=== PATIENT | male | born 1995 | race Caucasian/White ===

== ENCOUNTER 2017-04-01 21:23 | Emergency (ER) | payer OTHER ==
[2017-04-01 21:57] VITALS: BP 136/71; PULSE 91; RESP 18; TEMP 98.2
--- NOTE | 2017-04-01 22:25 | ED ---
Extremity Problem HPI - General Chief complaint: Extremity Problem,Nontraumatic Stated complaint: Bilat knee pain Time Seen by Provider: 04/01/17 22:17 Source: patient, RN notes reviewed Mode of arrival: ambulatory Limitations: no limitations - History of Present Illness Initial comments: 21-year-old male presents emergency Department chief complaint of bilateral knee pain. This is ongoing knee pain for 2 years. Patient states he was seen at a clinic told he had some inflammation given anti-inflammatories with no relief. He states it more does upset her stomach. Patient states she stands all day long states his had increased pain last few days no trauma. Denies any leg swelling, calf pain. He states he is gets pain on his patella. Patient states he has not seen his primary care physician for this or not. - Related Data Previous Rx's Medication Instructions Recorded methylPREDNISolone [Medrol Dose 4 mg PO DIRECTED #1 pack 04/01/17 Pack] Allergies Allergy/AdvReac Type Severity Reaction Status Date / Time No Known Allergies Allergy Verified 04/01/17 21:57 Review of Systems ROS Statement: Those systems with pertinent positive or pertinent negative responses have been documented in the HPI. ROS Other: All systems not noted in ROS Statement are negative. Past Medical History Additional Past Medical History / Comment(s): hashimotos History of Any Multi-Drug Resistant Organisms: None Reported Past Surgical History: Appendectomy, Tonsillectomy Past Psychological History: No Psychological Hx Reported Smoking Status: Current every day smoker Past Alcohol Use History: None Reported Past Drug Use History: None Reported General Exam Limitations: no limitations General appearance: alert, in no apparent distress Respiratory exam: Present: normal lung sounds bilaterally. Absent: respiratory distress, wheezes, rales, rhonchi, stridor Cardiovascular Exam: Present: regular rate, normal rhythm, normal heart sounds. Absent: systolic murmur, diastolic murmur, rubs, gallop, clicks Extremities exam: Present: other (Bilateral knees full range of motion neurovascular intact no laxity negative valgus varus negative anterior posterior drawer test pedal pulses equal bilaterally) Course Vital Signs 04/01/17 21:55 Temperature 98.2 F Pulse Rate 91 Respiratory 18 Rate Blood Pressure 136/71 O2 Sat by Pulse 96 Oximetry Medical Decision Making - Medical Decision Making 21-year-old male has chronic knee problems. Patient notes erratic injury does not require x-rays at this time. Patient referred to orthopedics. We discussed possible tendinitis versus Teleform oral syndrome. Patient states that anti-inflammatories her upset stomach. 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 Prescriptions: methylPREDNISolone [Medrol Dose Pack] 4 mg PO DIRECTED #1 pack Referrals: Kane Mercado Jr, DO [Primary Care Provider] - 1-2 days Narinder Gonsales MD [STAFF PHYSICIAN] - 1-2 days Time of Disposition: 22:25
== END 2017-04-01 22:39 | disposition home or self-care (01) ==
LOC: EC 21:23
DX: M25.561 Pain in right knee (principal); M25.562 Pain in left knee; F17.200 Nicotine dependence, unspecified, uncomplicated
CPT/HCPCS: 99283

== ENCOUNTER 2017-09-10 17:19 | Emergency (ER) | payer OTHER ==
[2017-09-10 17:27] VITALS: BP 147/76; PULSE 114; RESP 18; TEMP 97.7
[2017-09-10] MEDS ORDERED: ERYTHROMYCIN 5 MG/GM OPHTH OINT 3.5 GM TUBE RIGHT EYE STA (18:01)
[2017-09-10] MEDS ORDERED: ERYTHROMYCIN 5 MG/GM OPHTH OINT 3.5 GM TUBE LEFT EYE STA (18:01)
--- NOTE | 2017-09-10 18:12 | ED ---
Eye Problem HPI - General Chief complaint: Eye Problems Stated complaint: Eye Redness & Dry Time Seen by Provider: 09/10/17 17:53 Source: patient, RN notes reviewed Mode of arrival: ambulatory Limitations: no limitations - History of Present Illness Initial comments: This is a 22-year-old male who presents to the emergency department with chief complaint of eye redness and discharge since last . Patient states that his eyes have been red and have greenish/yellowish discharge that is more prominent in the morning upon waking. Patient states that his eyes were initially itchy for a few days then progressed to burning. He states itchiness and burning have gone away and that his eyes now just feel dry and "gunky." Patient denies any changes in vision or blurred vision. Patient denies any known injury or trauma. He denies foreign body feeling in bilateral eyes. Denies fever, chills, congestion, cough, sore throat, ear pain, chest pain, shortness of breath, abdominal pain, nausea or vomiting, constipation or diarrhea, dysuria or hematuria, numbness or tingling, headache or vision changes. - Related Data Previous Rx's Medication Instructions Recorded methylPREDNISolone [Medrol Dose 4 mg PO DIRECTED #1 pack 04/01/17 Pack] Allergies Allergy/AdvReac Type Severity Reaction Status Date / Time No Known Allergies Allergy Verified 09/10/17 17:27 Review of Systems ROS Statement: Those systems with pertinent positive or pertinent negative responses have been documented in the HPI. ROS Other: All systems not noted in ROS Statement are negative. Past Medical History Additional Past Medical History / Comment(s): hashimotos History of Any Multi-Drug Resistant Organisms: None Reported Past Surgical History: Appendectomy, Tonsillectomy Past Psychological History: No Psychological Hx Reported Smoking Status: Current every day smoker Past Alcohol Use History: None Reported Past Drug Use History: None Reported General Exam - General Exam Comments Initial Comments: General: Awake and alert, well-developed; in no apparent distress. HEENT: Head atraumatic, normocephalic. Pupils are equal, round and reactive to light. Extraocular movements intact. Bilateral conjunctiva injected. There is yellow-colored discharge noted at medial canthus of bilateral eyelids. Fluorescein staining was performed. There is no evidence of abrasion, ulcers or other abnormalities. Neck: Supple. Normal ROM. No adenopathy. Cardiovascular: Regular rate and rhythm. No murmurs, rubs or gallops. Chest symmetrical. Respiratory: Lungs clear to auscultation bilaterally. No wheezes, rales or rhonchi. Normal respiratory effort with no use of accessory muscles. Skin: [place], warm and dry without rashes or lesions. Neurological: Alert and oriented x3. CN II-XII grossly intact. Speech is fluent and answers are appropriate. No focal neuro deficits. Psychiatric: Normal mood and affect. No overt signs of depression or anxiety noted. Limitations: no limitations Course Vital Signs 09/10/17 17:25 Temperature 97.7 F Pulse Rate 114 H Respiratory 18 Rate Blood Pressure 147/76 O2 Sat by Pulse 98 Oximetry Medical Decision Making - Medical Decision Making This is a 22-year-old male who presents with complaint of bilateral eye redness and discharge. Fluorescein staining was performed and there was no evidence of abrasion, ulcers or other abnormalities. Patient tolerated this well and there were no complications. Bilateral conjunctiva are injected and discharge is noted at eyelids. Patient will receive erythromycin ointment and be discharged home. He is to follow-up with primary care provider in 1-2 days. Patient provided with ophthalmology referral if there is no improvement after antibiotics or there are any changes in vision. Patient is in agreement and voices understanding. All questions were answered. Disposition Clinical Impression: Bacterial conjunctivitis Disposition: HOME SELF-CARE Condition: Good Instructions: Conjunctivitis (ED), Erythromycin (Into the eye) Additional Instructions: Please apply erythromycin ointment to both affected eyes 4 times per day for 5 days. Please follow up with ophthalmology. Contact information is provided. Please follow up with primary care provider within 1-2 days. Return to emergency department if symptoms should worsen or any concerns arise. Referrals: Kane Mercado Jr, DO [Primary Care Provider] - 1-2 days Juan Daniel Peace MD [STAFF PHYSICIAN] - 1-2 days Time of Disposition: 18:12
== END 2017-09-10 18:39 | disposition home or self-care (01) ==
LOC: EC 17:19
DX: H10.89 Other conjunctivitis (principal); F17.200 Nicotine dependence, unspecified, uncomplicated
CPT/HCPCS: 99283

== ENCOUNTER 2017-11-14 07:07 | Emergency (ER) | payer OTHER ==
[2017-11-14 07:14] VITALS: RESP 16
[2017-11-14] MEDS ORDERED: ONDANSETRON ODT 4 MG TAB PO STA (07:30)
--- NOTE | 2017-11-14 07:32 | ED ---
General Adult HPI - General Chief complaint: Nausea/Vomiting/Diarrhea Stated complaint: nausea,vomiting Time Seen by Provider: 11/14/17 07:25 Source: patient, RN notes reviewed Mode of arrival: ambulatory Limitations: no limitations - History of Present Illness Initial comments: Patient is a pleasant 22-year-old male presenting to the emergency Department with nausea and vomiting. Onset was at 3 AM. Patient has had 2 episodes of vomiting. Patient still feels nauseated. No fever. No abdominal pain. No diarrhea. No history of chronic vomiting. - Related Data Previous Rx's Medication Instructions Recorded methylPREDNISolone [Medrol Dose 4 mg PO DIRECTED #1 pack 04/01/17 Pack] Erythromycin Ophth Oint [Romycin 1 applic BOTH EYES QID #3.5 gm 09/10/17 Ophth Oint] Ondansetron Odt [Zofran Odt] 4 mg PO Q8HR PRN #4 tab 11/14/17 Allergies Allergy/AdvReac Type Severity Reaction Status Date / Time No Known Allergies Allergy Verified 11/14/17 07:14 Review of Systems ROS Statement: Those systems with pertinent positive or pertinent negative responses have been documented in the HPI. ROS Other: All systems not noted in ROS Statement are negative. Constitutional: Denies: fever, chills Eyes: Denies: eye pain ENT: Denies: ear pain, throat pain Respiratory: Denies: cough, dyspnea Cardiovascular: Denies: chest pain Endocrine: Denies: fatigue Gastrointestinal: Reports: nausea, vomiting. Denies: abdominal pain Genitourinary: Denies: dysuria Musculoskeletal: Denies: back pain Skin: Denies: rash Neurological: Denies: weakness Past Medical History Additional Past Medical History / Comment(s): hashimotos History of Any Multi-Drug Resistant Organisms: None Reported Past Surgical History: Appendectomy, Tonsillectomy Past Psychological History: No Psychological Hx Reported Smoking Status: Former smoker Past Alcohol Use History: None Reported Past Drug Use History: None Reported General Exam Limitations: no limitations General appearance: alert, in no apparent distress Head exam: Present: atraumatic Eye exam: Present: normal appearance, PERRL ENT exam: Present: normal oropharynx Neck exam: Present: normal inspection Respiratory exam: Present: normal lung sounds bilaterally Cardiovascular Exam: Present: regular rate, normal rhythm Expanded Peripheral pulses: 2+: Radial (R), Radial (L), Posterior Tibialis (R), Posterior Tibialis (L) GI/Abdominal exam: Present: soft, normal bowel sounds. Absent: distended, tenderness, guarding, rebound, rigid, pulsatile mass Extremities exam: Present: normal inspection. Absent: pedal edema, calf tenderness Neurological exam: Present: alert Psychiatric exam: Present: normal affect, normal mood Skin exam: Present: normal color Course Vital Signs 11/14/17 11/14/17 07:13 07:55 Temperature 97.5 F L Pulse Rate 115 H 98 Respiratory 16 Rate Blood Pressure 133/81 O2 Sat by Pulse 97 Oximetry - Reevaluation(s) Reevaluation #1: 11/14/17 07:30 Patient wishes to avoid a needle and just wants Zofran ODT at this time. Medical Decision Making - Medical Decision Making Patient reevaluated and states nausea has improved. Patient is comfortable with discharge Disposition Clinical Impression: Nausea and vomiting Disposition: HOME SELF-CARE Condition: Stable Instructions: Acute Nausea and Vomiting (ED) Additional Instructions: Please follow-up to primary care physician in the next day or 2 for recheck. Return for not tolerating fluids, pain, fevers, worsening or changing symptoms or other concerns. Prescriptions: Ondansetron Odt [Zofran Odt] 4 mg PO Q8HR PRN #4 tab PRN Reason: Nausea Referrals: Kane Mercado Jr, DO [Primary Care Provider] - 1-2 days Time of Disposition: 08:05
[2017-11-14 08:15] VITALS: BP 125/78; PULSE 91; TEMP 98
== END 2017-11-14 08:15 | disposition home or self-care (01) ==
LOC: EC 07:07
DX: R11.2 Nausea with vomiting, unspecified (principal); Z87.891 Personal history of nicotine dependence; Z90.49 Acquired absence of other specified parts of digestive tract
CPT/HCPCS: 99283

== ENCOUNTER 2018-01-07 21:21 | Emergency (ER) | payer BC, OTHER ==
[2018-01-07 21:26] VITALS: BP 130/80; PULSE 82; RESP 18; TEMP 98.3
--- NOTE | 2018-01-07 22:01 | ED ---
Extremity Problem HPI - General Chief complaint: Extremity Problem,Nontraumatic Stated complaint: left arm pain Time Seen by Provider: 01/07/18 21:30 Source: patient Mode of arrival: ambulatory Limitations: no limitations - History of Present Illness Initial comments: This is a 22-year-old male who presents to the emergency department with chief complaint of left upper arm pain. Patient states that the pain began last evening. He describes the pain as an ache that radiates down his arm. The pain is intermittent. He states that he occasionally experiences some numbness and tingling in his left wrist. Patient denies any recent injuries or trauma. 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 He denies any recent neck injury or pain. He states that he has normal range of motion and that there is no pain when he touches his arm. Denies chest pain or shortness of breath. Denies fever or chills, abdominal pain, nausea or vomiting , diarrhea or constipation. - Related Data Previous Rx's Medication Instructions Recorded methylPREDNISolone [Medrol Dose 4 mg PO DIRECTED #1 pack 04/01/17 Pack] Erythromycin Ophth Oint [Romycin 1 applic BOTH EYES QID #3.5 gm 09/10/17 Ophth Oint] Ondansetron Odt [Zofran Odt] 4 mg PO Q8HR PRN #4 tab 11/14/17 methylPREDNISolone Dose Pack 4 mg PO DIRECTED #21 package 01/07/18 [Medrol Dose Pack] Allergies Allergy/AdvReac Type Severity Reaction Status Date / Time No Known Allergies Allergy Verified 01/07/18 21:23 Review of Systems ROS Statement: Those systems with pertinent positive or pertinent negative responses have been documented in the HPI. ROS Other: All systems not noted in ROS Statement are negative. Past Medical History Additional Past Medical History / Comment(s): hashimotos History of Any Multi-Drug Resistant Organisms: None Reported Past Surgical History: Appendectomy, Tonsillectomy Past Psychological History: No Psychological Hx Reported Smoking Status: Former smoker Past Alcohol Use History: Occasional Past Drug Use History: None Reported General Exam - General Exam Comments Initial Comments: General: Awake and alert, well-developed; in no apparent distress. HEENT: Head atraumatic, normocephalic. Pupils are equal, round and reactive to light. Extraocular movements intact. Oropharynx moist without erythema or exudate. Neck: Supple. Normal ROM. No tenderness. Cardiovascular: Regular rate and rhythm. No murmurs, rubs or gallops. Chest symmetrical. Respiratory: Lungs clear to auscultation bilaterally. No wheezes, rales or rhonchi. Normal respiratory effort with no use of accessory muscles. Musculoskeletal: Normal ROM, strength 5/5, no tenderness entire left upper extremity. Sensation is intact. Radial pulses are 2+ equal and palpable bilaterally. Ambulating normally. Skin: [place], warm and dry without rashes or lesions. Neurological: Alert and oriented x3. CN II-XII grossly intact. Speech is fluent and answers are appropriate. No focal neuro deficits. Psychiatric: Normal mood and affect. No overt signs of depression or anxiety noted. Limitations: no limitations Course Vital Signs 01/07/18 21:23 Temperature 98.3 F Pulse Rate 82 Respiratory 18 Rate Blood Pressure 130/80 O2 Sat by Pulse 97 Oximetry Medical Decision Making - Medical Decision Making This is a 22-year-old male who presents to the emergency department with chief complaint of left upper arm pain with radiation down his arm that started yesterday. Patient denies any chest pain or shortness of breath. The pain is intermittent and he describes it as achy with occasional numbness and tingling of his left wrist. Denies any injuries or trauma. Patient has normal range of motion and no tenderness on palpation of entire left upper extremity. Patient likely suffering from a cervical radiculopathy. He will be given a prescription for Medrol Dosepak. Patient's vital signs are stable and he is in no acute distress. He will be discharged home. Patient is in agreement with plan and voices understanding. All questions were answered. Disposition Clinical Impression: Cervical radiculopathy Disposition: HOME SELF-CARE Condition: Good Instructions: Cervical Radiculopathy (ED) Additional Instructions: Please take medications as prescribed. Please follow up with primary care provider within 1-2 days. Return to emergency department if symptoms should worsen or any concerns arise. Prescriptions: methylPREDNISolone Dose Pack [Medrol Dose Pack] 4 mg PO DIRECTED #21 package Referrals: Kane Mercado Jr, DO [Primary Care Provider] - 1-2 days Time of Disposition: 22:01
== END 2018-01-07 22:04 | disposition home or self-care (01) ==
LOC: EC 21:21
DX: M54.12 Radiculopathy, cervical region (principal); Z87.891 Personal history of nicotine dependence
CPT/HCPCS: 99283

== ENCOUNTER → 2018-02-14 | Outpatient (CLI) | payer BC, OTHER ==
--- NOTE | 2018-02-14 09:44 | US ---
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 GLAND SIZE: Right Lobe: 5.4 x 1.9 x 1.8 cm Overall Parenchyma: heterogenous Left Lobe: 5.1 x 2.0 x 1.3 cm Overall Parenchyma: heterogeneous Isthmus Thickness: 0.6 cm NODULES RIGHT: # of nodules measured on right: 0 LEFT: # of nodules measured on left: 0 ISTHMUS: # of nodules measured in the isthmus: 0 No discrete nodules seen. Bilateral neck scanned, no evidence of lymphadenopathy. IMPRESSION: Continued thyroidomegaly and heterogeneity without distinct nodules seen.
== END ==
LOC: RADUSMAIN 08:53
PROVIDERS: ATTEND Internal Medicine
DX: E01.0 Iodine-deficiency related diffuse (endemic) goiter (principal)
CPT/HCPCS: 76536

== ENCOUNTER 2019-10-21 08:02 | Day surgery (SDC) | payer BC, OTHER ==
[2019-10-14 14:23] VITALS: BMI 34.2
[~2019-10-21 08:02] MED LIST: DEXAMETHASONE SOD PHOSPHATE 10 MG/ML 1 ML VIAL IV ONE; HEPARIN SODIUM,PORCINE 5,000 UNIT/ML 1 ML VIAL SQ ONE; LACTATED RINGERS 1,000 ML IV SCH; LIDOCAINE 1% 20 ML VIAL (10MG/ML) FOR IV START INTRADERMA PRN; MIDAZOLAM 2 MG/2 ML VIAL IV PRN; ONDANSETRON 4 MG/2 ML VIAL IVP ONE; SCOPOLAMINE 1.5MG/72HR PATCH TRANSDERM ONE
--- NOTE | 2019-10-21 10:20 | P.ANPRN ---
Procedure Note - Anesthesia - Nerve Block Performed Left Transversus Abdominis Single Time Out Performed: Yes Date of Procedure: 10/21/19 Procedure Start Time: 09:58 Procedure Stop Time: 10:01 Location of Patient: PreOp Indication: Acute Post-Operative Pain, Analgesia, Requested by Surgeon Sedation Type: Sedate with meaningful contact maintained Preparation: Sterile Prep Position: Supine Catheter: None Needle Types: Pajunk Needle Gauge: 21 Ultrasound used to visualize needle placement: Yes Ultrasound used to observe medication spread: Yes Injectate: Other (see comment) (0.25% ropivaciane 30cc) Blood Aspirated: No Pain Paresthesia on Injection Noted: No Resistance on Injection: Normal Image Stored and Saved: Yes Events: Uneventful and Well Tolerated
--- NOTE | 2019-10-21 10:28 | P.GSHP ---
History of Present Illness H&P Date: 10/21/19 Chief Complaint: Left inguinal hernia This a 24-year-old male who presents today for open repair of left we will hernia. Patient has a very large left inguinal hernia. He's dull pain and mass in the area. Past Medical History Additional Past Medical History / Comment(s): left inguinal hernia, hashimotos, no current medication History of Any Multi-Drug Resistant Organisms: None Reported Past Surgical History: Appendectomy, Tonsillectomy Past Anesthesia/Blood Transfusion Reactions: No Reported Reaction Past Psychological History: No Psychological Hx Reported Smoking Status: Former smoker Past Alcohol Use History: Occasional Additional Past Alcohol Use History / Comment(s): quit smoking 2016, smoked about 1 pk a week, currently vapes Past Drug Use History: None Reported - Past Family History Mother Family Medical History: No Reported History Medications and Allergies Home Medications Medication Instructions Recorded Confirmed Type No Known Home Medications 10/14/19 10/21/19 History Allergies Allergy/AdvReac Type Severity Reaction Status Date / Time No Known Allergies Allergy Verified 10/21/19 09:27 Surgical - Exam Vital Signs Temp Pulse Resp BP Pulse Ox 98.8 F 60 17 115/76 97 10/21/19 09:51 10/21/19 09:51 10/21/19 09:51 10/21/19 09:51 10/21/19 09:51 - General well developed, well nourished, no distress - Eyes PERRL - ENT normal pinna - Neck no masses - Respiratory normal expansion - Cardiovascular Rhythm: regular - Abdomen Abdomen: soft, non tender Hernia: inguinal (Incarcerated left inguinal hernia) Assessment and Plan Assessment: Left internal hernia. We'll perform open repair.
[2019-10-21] MEDS ORDERED: PROPOFOL 10 MG/ML 20 ML VIAL IV ONE (10:40)
[2019-10-21] MEDS ORDERED: GLYCOPYRROLATE 0.2 MG/ML 2 ML VIAL ONE (10:40)
[2019-10-21] MEDS ORDERED: NEOSTIGMINE 1 MG/ML 10 ML VIAL ONE (10:40)
[2019-10-21] MEDS ORDERED: HYDROmorphone (PF) 1 MG/ML ONE (10:40)
[2019-10-21] MEDS ORDERED: ROCURONIUM BROMIDE 10 MG/ML 10 ML VIAL IV ONE (10:40)
[2019-10-21] MEDS ORDERED: fentaNYL (PF) 50 MCG/ML 2 ML AMP ONE (10:40)
[2019-10-21] MEDS ORDERED: ROPIVACAINE 5 MG/ML 30 ML VIAL ONE (10:40)
[2019-10-21] MEDS ORDERED: MIDAZOLAM 2 MG/2 ML VIAL ONE (10:40)
[2019-10-21] MEDS ORDERED: LIDOCAINE 1% INJ 10MG/ML (20 ML MDV) ONE (10:40)
[2019-10-21] MEDS ORDERED: SUCCINYLCHOLINE CHLORIDE 100 MG/5 ML SYR IV ONE (10:40)
[2019-10-21] MEDS ORDERED: BUPIVACAINE (PF) 0.25% 30 ML VIAL SQ ONE (11:10)
--- NOTE | 2019-10-21 11:56 | P.OP ---
Date of Procedure: 10/21/19 Preoperative Diagnosis: Incarcerated left inguinal hernia Postoperative Diagnosis: Incarcerated left inguinal hernia with omentum incarcerated within hernia Procedure(s) Performed: Open repair of incarcerated left inguinal hernia Anesthesia: CARL Surgeon: Augustine Roque Estimated Blood Loss (ml): 25 Pathology: other (Incarcerated omentum) Condition: stable Disposition: PACU Description of Procedure: DESCRIPTION OF PROCEDURE: The patient was placed in the supine position after receiving adequate anesthesia. Patient's left groin was prepped and draped in the usual sterile fashion. A standard hernia incision was made and the subcutaneous tissues were divided with electrocautery. The fascia of the external oblique was exposed. A kirit the fascia was made with #15 blade. The fascia was then opened with pair of Metzenbaum scissors. A Weitlaner retractor was placed in the wound and the cord structures were grasped and dissected free from the inguinal canal. A rubber Delavan drain was placed around the cord structures. The hernial sac was seen on the anterior-medial portion of the cord and this was dissected free from the cord. The patient had incarcerated omentum within the hernia sac. Hernia sac extended towards the testicle. The hernia sac was then opened and the incarcerated omentum was divided and sent to pathology. The omentum was ligated with 3-0 silk tie. The hernia sac was then suture-ligated The hernia sac was then invaginated to the peritoneal cavity. Using blunt finger dissection, the preperitoneal space was dissected and then the Prolene hernial mesh plug was placed into the prepared space. The inferior leaf was expanded. The superior leaf was secured to the pubic tubercle using 2-0 Prolene suture. The lateral portion of the superior leaf was incised and cords tied and secured to the transversalis fascia using 2-0 Prolene suture. Fascia of the external oblique was then closed using #0 Vicryl suture. The Jl drain was removed. The Scarpas fascia was then closed with 3-0 Vicryl suture and skin was closed with roxie. The patient tolerated the procedure well.
[2019-10-21] MEDS ORDERED: LACTATED RINGERS 1,000 ML IV ONE (12:00)
[2019-10-21 12:16] VITALS: TEMP 97
[2019-10-21] MEDS ORDERED: KETOROLAC 30 MG/ML 1 ML VIAL IVP ONE (12:24)
[2019-10-21 12:32] VITALS: RESP 16
[2019-10-21] MEDS: HYDROmorphone 0.5 MG/0.5 ML SYRINGE IVP PRN ×2 (12:33→12:38)
[2019-10-21 13:47] VITALS: BP 116/60; PULSE 74
== END 2019-10-21 14:10 | disposition home or self-care (01) ==
LOC: OR 08:02
PROVIDERS: ATTEND Surgery
DX: K40.30 Unilateral inguinal hernia, with obstruction, without gangrene, not specified as recurrent (principal); E06.3 Autoimmune thyroiditis; K08.89 Other specified disorders of teeth and supporting structures; F17.290 Nicotine dependence, other tobacco product, uncomplicated; E66.9 Obesity, unspecified; Z68.34 Body mass index [BMI] 34.0-34.9, adult; Z90.89 Acquired absence of other organs
CPT/HCPCS: 64486; 49507; 88305; C1781; J2250; J1644; J1100; J2710; J0690; J2405; J2001; J3010; J1885; J1170 ×2; J2795; J0330; J2704

== ENCOUNTER 2022-05-20 18:54 | Emergency (ER) | payer BC, OTHER ==
[2022-05-20 18:58] VITALS: BP 147/82; PULSE 113; RESP 16; TEMP 98.7
--- NOTE | 2022-05-20 20:11 | US ---
EXAMINATION TYPE: US venous doppler duplex LE LT DATE OF EXAM: 05/20/2022 7:58 PM COMPARISON: NONE CLINICAL HISTORY: warmth, swollen. left leg pain and edema SIDE PERFORMED: left TECHNIQUE: The lower extremity deep venous system is examined utilizing real time linear array sonog chaya with graded compression, doppler sonography and color-flow sonography. VESSELS IMAGED: Common Femoral Vein Deep Femoral Vein Greater Saphenous Vein * Femoral Vein Popliteal Vein Small Saphenous Vein * Proximal Calf Veins (* superficial vessels) Left Leg: no evidence of DVT. lymph node left groin = 4.4 x 4.3cm IMPRESSION: No evidence of deep vein thrombosis in the left leg. There is enlarged left inguinal lymp h node.
[2022-05-20] MEDS ORDERED: CEPHALEXIN 500 MG CAP PO STA (20:54)
--- NOTE | 2022-05-20 21:02 | ED ---
Extremity Problem HPI - General Chief complaint: Extremity Problem,Nontraumatic Stated complaint: lt leg swelling Time Seen by Provider: 05/20/22 18:55 Source: patient Mode of arrival: ambulatory Limitations: no limitations - History of Present Illness Initial comments: 27-year-old male presents to the emergency department with left leg swelling. Reports that he awoke this morning to redness and swelling to his left anterior varela. There is a considerable amount of warmth associated with it. Denies history of DVT or PE. No trauma to the extremity. No fevers. Denies any chest pain or shortness of breath. No other alleviating, precipitating or modifying factors - Related Data Previous Rx's Medication Instructions Recorded Docusate [Colace] 100 mg PO BID #20 capsule 10/21/19 HYDROcodone/APAP 5-325MG [[place] 1 tab PO Q6HR PRN #10 tab 10/21/19 5-325] Cephalexin [Keflex] 500 mg PO Q6HR #28 cap 05/20/22 Allergies Allergy/AdvReac Type Severity Reaction Status Date / Time No Known Allergies Allergy Verified 05/20/22 18:58 Review of Systems ROS Statement: Those systems with pertinent positive or pertinent negative responses have been documented in the HPI. ROS Other: All systems not noted in ROS Statement are negative. Past Medical History Additional Past Medical History / Comment(s): left inguinal hernia, hashimotos, no current medication History of Any Multi-Drug Resistant Organisms: None Reported Past Surgical History: Appendectomy, Tonsillectomy Past Anesthesia/Blood Transfusion Reactions: No Reported Reaction Past Psychological History: No Psychological Hx Reported Smoking Status: Vaper Past Alcohol Use History: Occasional Past Drug Use History: None Reported - Past Family History Mother Family Medical History: No Reported History General Exam Limitations: no limitations General appearance: alert, in no apparent distress Head exam: Present: atraumatic, normocephalic, normal inspection Eye exam: Present: normal appearance, PERRL, EOMI. Absent: scleral icterus, conjunctival injection, periorbital swelling ENT exam: Present: normal exam, mucous membranes moist Neck exam: Present: normal inspection. Absent: tenderness, meningismus, lymphadenopathy Respiratory exam: Present: normal lung sounds bilaterally. Absent: respiratory distress, wheezes, rales, rhonchi, stridor Cardiovascular Exam: Present: regular rate, normal rhythm, normal heart sounds. Absent: systolic murmur, diastolic murmur, rubs, gallop, clicks GI/Abdominal exam: Present: soft, normal bowel sounds. Absent: distended, tenderness, guarding, rebound, rigid Extremities exam: Present: normal inspection, full ROM, normal capillary refill, pedal edema (left leg, 1+ with redness and swelling. patches of erythema anterior to the left varela). Absent: tenderness, joint swelling, calf tenderness Back exam: Present: normal inspection Neurological exam: Present: alert, oriented X3, CN II-XII intact Psychiatric exam: Present: normal affect, normal mood Skin exam: Present: warm, dry, intact, normal color. Absent: rash Course Vital Signs 05/20/22 18:55 Temperature 98.7 F Pulse Rate 113 H Respiratory 16 Rate Blood Pressure 147/82 O2 Sat by Pulse 97 Oximetry Medical Decision Making - Medical Decision Making Upon arrival the patient is placed into room 8. Thorough history and physical exam was performed. Ultrasound is performed which does not demonstrate DVT. Patient be treated for cellulitis. Instructed to take the medications as directed and felt his primary care doctor in 2-4 days for reevaluation. Return for any new or worsening symptoms. Patient agrees she will has discharged home in stable condition Disposition Clinical Impression: Cellulitis, Left leg swelling Disposition: HOME SELF-CARE Condition: Stable Instructions (If sedation given, give patient instructions): Cellulitis (ED) Additional Instructions: Take antibiotics as directed and follow up with your primary care doctor in 2-4 days to ensure improvement. Return for any new or worsening symptoms Prescriptions: Cephalexin [Keflex] 500 mg PO Q6HR #28 cap Is patient prescribed a controlled substance at d/c from ED?: No Referrals: None,Stated [Primary Care Provider] - 1-2 days Time of Disposition: 21:02
== END 2022-05-20 21:13 | disposition home or self-care (01) ==
LOC: EC 18:54
DX: L03.116 Cellulitis of left lower limb (principal); F17.290 Nicotine dependence, other tobacco product, uncomplicated
CPT/HCPCS: 99283

== ENCOUNTER → 2023-04-03 | Outpatient (CLI) | payer BC ==
--- NOTE | 2023-04-03 11:43 | CT ---
EXAMINATION TYPE: CT pelvis w con CT DLP: 1129.8 mGycm, Automated exposure control for dose reduction was used. DATE OF EXAM: 04/03/2023 11:02 AM COMPARISON: None CLINICAL INDICATION:Male, 27 years old with history of K40.90; left inguinal hernia TECHNIQUE: Standard CT of the pelvis following the administration of 100 cc of Isovue [address] material and oral contrast. Coronal and sagittal reformats were performed. FINDINGS: BLADDER: Unremarkable REPRODUCTIVE: Unremarkable. BOWEL: Enteric contrast reaches the descending colon. No focal wall thickening or surrounding inflamm atory changes involving the visualized portions of the bowel No evidence of bowel obstruction. PERITONEUM: No evidence of pneumoperitoneum or free fluid. VASCULATURE: Unremarkable. MUSCULOSKELETAL: No acute osseous abnormalities LYMPH NODES: No gross evidence for lymphadenopathy. SOFT TISSUE/ABDOMINAL WALL: Tiny fat filled left inguinal hernia. There is some nonspecific trace str anding and fluid in the left lower quadrant in the region of the inguinal ring (series 3, image 34). IMPRESSION: Tiny fat filled left inguinal hernia with some trace stranding and fluid in the left lower quadrant i n the region of the inguinal ring . Clinical correlation is recommended. This can be further assessed with ultrasound as clinically indicated.
== END | disposition home or self-care (01) ==
LOC: RADCTMAIN 09:00
PROVIDERS: ATTEND Surgery
DX: K40.90 Unilateral inguinal hernia, without obstruction or gangrene, not specified as recurrent (principal)
CPT/HCPCS: 72193; Q9967

== ENCOUNTER → 2024-02-19 | Outpatient (CLI) | payer BC ==
--- NOTE | 2024-02-19 16:18 | P.SLEEP ---
History of Present Illness DATE: 02/19/2024 CONSULTATION/NEW PATIENT EVALUATION HISTORY OF PRESENT ILLNESS/SLEEP-WAKE EVALUATION: 28-year-old gentleman had been evaluated in the sleep center for possible obstructive sleep apnea hypopnea syndrome. SLEEP SCHEDULE: Usually sleep schedule from 10 PM to 5:30 AM on weekdays and from 11 PM to 8 AM on weekend. FALLING ASLEEP: Sometimes patient has difficulties with falling asleep. DURING SLEEP: Patient snores and wakes up from sleep 2 times. No history of nocturia. No history of hypnogogical hallucinations, sleep paralysis, or cataplexy. DURING THE DAY/WAKE STATE: In the morning patient wake up tired. Sta[place] sleepiness scale is 6. Usually patient does not take naps. PAST MEDICAL HISTORY: Bridgett thyroiditis. PAST SURGICAL HISTORY: Hernia repair. MEDICATIONS: None at the present time. SOCIAL HISTORY: Vaping, alcohol consumption occasional. FAMILY HISTORY: Thyroid problems. REVIEW OF SYSTEMS: Snoring, awakenings from sleep. No fevers. No double vision. No recent chest pain. No shortness of breath. No abdominal pain. No bleeding episodes. No blood in urine. No seizure episodes. PHYSICAL EXAMINATION: GENERAL: A pleasant patient without any distress. VITAL SIGNS: Please see below, BMI 34.4. HEENT: PERRLA, EOMI. Evaluation of oropharynx showed tongue protrudes midline, l ow position of soft palate Mallampati 4. NECK: Supple. No JVD. Thyroid is palpable. 18 inches in circumference. LUNGS: Clear to percussion and to auscultation. Good air exchange. No wheezing or rhonchi. HEART: S1, S2 regular. No murmurs, gallops or rubs. ABDOMEN: Soft and nontender. Bowel sounds are present. No organomegaly appreciated. EXTREMITIES: No clubbing or cyanosis. ACCOUNTING PROFESSOR: Awake, alert, and oriented x3. Cranial nerves 2 to 7 intact. There is no fasciculation or atrophy noted. No focal deficits observed. ASSESSMENT: 1. Snoring, awakenings from sleep, extremely low position of soft palate Mallampati 4, wide neck 18 inches in circumference. Obstructive sleep apnea hypopnea syndrome. 2. 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 3. Status post hernia repair. 4. Obesity, BMI 34.4. PLAN: 1. Home sleep apnea test for evaluation of patient's breathing during sleep. 2. Following plan after reading sleep study. 3. Preferable position during sleep on the side. 4. No driving if patient feels any sleepiness. Patient is aware of civil and criminal liability for unsafe driving. 5. Sleep hygiene with regular sleep time for at least 7.5-8 hours. 6. Watching and losing weight. Thank you very much for referring this patient for consultation. Sincerely, Gurinder Lopez MD, PhD, FAASM. Diplomat of [place] [employer], Sleep Medicine Board by [place] [employer] [place] [employer] Topographic Computator of [facility] [place] Past Medical History Past Medical History: Thyroid Disorder Additional Past Medical History / Comment(s): left inguinal hernia, hashimotos, no current medication History of Any Multi-Drug Resistant Organisms: None Reported Past Surgical History: Appendectomy, Tonsillectomy Past Anesthesia/Blood Transfusion Reactions: No Reported Reaction Past Psychological History: No Psychological Hx Reported Smoking Status: Vaper Past Alcohol Use History: Occasional Additional Past Alcohol Use History / Comment(s): quit smoking 2016, smoked about 1 pk a week, currently vapes Past Drug Use History: None Reported - Past Family History Mother Family Medical History: Thyroid Disorder Medications and Allergies Home Medications Medication Instructions Recorded Confirmed Type Docusate [Colace] 100 mg PO BID #20 capsule 10/21/19 Rx HYDROcodone/APAP 5-325MG [[place] 1 tab PO Q6HR PRN #10 tab 10/21/19 Rx 5-325] Cephalexin [Keflex] 500 mg PO Q6HR #28 cap 05/20/22 Rx Allergies Allergy/AdvReac Type Severity Reaction Status Date / Time No Known Allergies Allergy Verified 05/20/22 18:58 Physical Exam Vitals: Vital Signs Temp Pulse Resp BP Pulse Ox 02/19/24 15:52 98.3 F 92 16 127/81 98 Sleep Note - Sleep Data ESS Total: 6 - Sleep Note Sleep Note: Temperature: 98.3 F Pulse Rate: 92 Respiratory Rate: 16 Blood Pressure: 127/81 SpO2: 98 Height: Weight: BMI: Neck Circumference: 18
[2024-02-19 16:27] VITALS: BP 127/81; PULSE 92; RESP 16; TEMP 98.3
== END ==
LOC: 3 N SLEEP 15:17
PROVIDERS: ATTEND Internal Medicine
DX: G47.33 Obstructive sleep apnea (adult) (pediatric) (principal); E66.9 Obesity, unspecified; F17.290 Nicotine dependence, other tobacco product, uncomplicated; Z98.890 Other specified postprocedural states; Z86.39 Personal history of other endocrine, nutritional and metabolic disease; Z68.34 Body mass index [BMI] 34.0-34.9, adult
CPT/HCPCS: 99211

== ENCOUNTER → 2024-02-21 | Outpatient (CLI) | payer BC ==
--- NOTE | 2024-02-26 13:55 | P.PCN ---
Description of Procedure: CLINICAL: A home sleep apnea test has been done for confirmation of possible obstructive sleep apnea-hypopnea syndrome. DESCRIPTION OF PROCEDURE: RESULTS: Recording time was 10 hours 57 minutes. Evaluation time was 10 hours 45 minutes. Evaluation time is sufficient for making conclusion about results of the test. Raw data of sleep recording has been reviewed and is adequate. Respiratory channel showed 5 apneas and 69 hypopneas. Apnea-hypopnea index was 6.9 per hour. Pulse rate in the range between minimum 43, maximum 110, average 69 by computer calculation. Lowest desaturation was 83%. IMPRESSION: 1. Obstructive Sleep Apnea Hypopnea Syndrome. Please see other impressions from consultation. PLAN: 1. I will see patient for follow-up visit to discuss results of the test and following plan. 2. Sleep hygiene with regular time in bed for at least 8 hours. 3. Watching and losing weight. 4. No driving if feeling any sleepiness. Thank you very much for allowing me to participate in the management of your patient. Sincerely, Gurinder Lopez MD, PhD, FAASM Diplomat of [place] [employer] Sleep Medicine Board of [place] [employer] Extractor And Wringer Operator of [facility] [place]
== END | disposition home or self-care (01) ==
LOC: 3 N SLEEP 12:50
PROVIDERS: ATTEND Internal Medicine
DX: G47.33 Obstructive sleep apnea (adult) (pediatric) (principal); Z87.891 Personal history of nicotine dependence

== ENCOUNTER → 2024-03-11 | Outpatient (CLI) | payer BC ==
--- NOTE | 2024-03-11 17:30 | P.PN ---
Subjective DATE: 03/11/2024 FOLLOW UP VISIT. Patient returned to sleep center for follow-up visit to discuss results of sleep study and following plan. I discussed results of sleep study with patient in details. He has mild obstructive sleep apnea hypopnea syndrome, but with significant oxygen distress to 76%. Patient has symptoms of excessive daytime s leepiness. Young Harris sleepiness scale today is 13. MEDICATIONS: None During physical exam: GENERAL: A pleasant patient without any distress. VITAL SIGNS: BP 129/82, HR 90, RR 16, weight 220 pounds, BMI 34.4, temperature 98.0, oxygen saturation room air 98%. HEENT: PERRLA, EOMI. low position of soft palate, Mallampati 4. Thyroid is palpable. NECK: Supple. No JVD. LUNGS: Clear to percussion and to auscultation. Good air exchange. No wheezing or rhonchi. HEART: S1, S2 regular. ABDOMEN: Soft and nontender. EXTREMITIES: No clubbing or cyanosis. MICA PATCHER: Awake, alert, and oriented x3. No focal deficit. Impressions: 1. Snoring, awakenings from sleep. Excessive daytime sleepiness with Young Harris Sleepiness Scale 13. Obstructive sleep apnea hypopnea syndrome, apnea hypopnea index 6.9 with oxygen saturation 76%. 2. 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 3. Obesity, BMI 34.4. 4. Status post hernia repair. Plan: 1. Patient will start treatment with AutoPap range of the pressure 5 to 15 cm of water. 2. Sleep hygiene with regular time in bed for at least 8 hours. 3. Watching and losing weight 4. Precautions related to driving. No driving if feel any sleepiness. Patient is aware about civil and criminal liability for unsafe driving, promised to follow recommendations. 5. Follow up visit in 1-3 months after starting using CPAP to evaluate clinical response to treatment, compliance with treatment and making necessary adjustments related to mask fitting pressure and humidification or earlier if patient has any problems. Thank you very much for allowing me to participate in the management of your patient. Gurinder Lopez MD, PhD, FAASM. Diplomat of [place] [employer], Sleep Medicine Board by [place] [employer] Medicine Food Chemist of [facility] [place]
== END ==
LOC: 3 N SLEEP 15:11
PROVIDERS: ATTEND Internal Medicine
DX: G47.33 Obstructive sleep apnea (adult) (pediatric) (principal); G47.36 Sleep related hypoventilation in conditions classified elsewhere; E66.9 Obesity, unspecified; Z98.890 Other specified postprocedural states; Z68.34 Body mass index [BMI] 34.0-34.9, adult; Z86.39 Personal history of other endocrine, nutritional and metabolic disease; Z87.891 Personal history of nicotine dependence
CPT/HCPCS: 99212

== ENCOUNTER → 2024-07-09 | Outpatient (CLI) | payer BC ==
--- NOTE | 2024-07-22 11:25 | SFUN ---
SLEEP CENTER FOLLOW UP NOTE Recently, the patient had a sleep study which showed that he had obstructive sleep apnea-hypopnea syndrome. The patient was started on CPAP. This is his first visit after treatment with CPAP was started. The patient sleeps better with CPAP and he feels better during the day, although still some sleepiness. [place] Sleepiness Scale is 15. Presently, the patient is able to use his CPAP equipment practically every night, had difficulties at the beginning. I checked CPAP unit. Range of the pressure 5-15, average pressure 7.5. Usage is 101/108 nights and 53/108 nights for more than 4 hours. Leak is 19 L/minute, which is in normal range. Apnea-hypopnea index is 1.4 which is normal. PHYSICAL EXAMINATION: GENERAL: Patient in no distress. VITAL SIGNS: BP 118/77, HR 58, RR 16, , weight 224, temperature 98.0, oxygen saturation at room air 99%. HEENT: PERRLA, EOMI, evaluation of oropharynx showed tongue protrudes midline. NECK: Supple, no JVD. Thyroid is not palpable. LUNGS: Clear to percussion and to auscultation. Good air exchange. No wheezing or rhonchi. HEART: S1, S2 regular. No murmurs, gallops, or rubs. ABDOMEN: Slightly obese. Soft and nontender. Bowel sounds are present. No organomegaly appreciated. EXTREMITIES: No clubbing or cyanosis. No edema. RENTAL COUNTER CLERK: Awake, alert, and oriented X3. Cranial nerves 2 to 7 intact. There is no fasciculation or atrophy. noted. No focal deficits observed. IMPRESSION: 1. Obstructive sleep apnea-hypopnea syndrome, respiration on CPAP normalized. The patient demonstrated slightly low compliance with treatment. 2. Mild obesity. 3. Sleepiness. PLAN: 1. The patient will continue to use CPAP equipment every night for the whole night. 2. I discussed with the patient recommendations for using CPAP including position of the machine, questions about humidification. 3. Losing weight. 4. No driving if feeling sleepiness. 5. We will extent trial period for another 90 days. 6. Followup visit in 2 months. Thank you very much for allowing me to participate in management of your patient. Sincerely, Gurinder Lopez MD, PhD, FAASM Diplomat of [place] [employer] Sleep Medicine Board of [place] [employer] Medicine Vp Of Customer Experience Strategy of [facility] [place] MMODL / ABELINO: [id number] / NICOLE
== END ==
LOC: 3 N SLEEP 15:40
PROVIDERS: ATTEND Internal Medicine
CPT/HCPCS: 99212

== ENCOUNTER → 2024-09-30 | Outpatient (CLI) | payer BC ==
--- NOTE | 2024-09-30 13:47 | P.PROGSL ---
Subjective DATE: 09/30/2024 FOLLOW UP VISIT. Patient with obstructive sleep apnea hypopnea syndrome return to sleep center for follow-up visit. Information from previous visit have been reviewed. Patient is using PAP equipment every night for the whole night, getting PAP supplies in time. The patient does not have significant problems with the mask, PAP unit and humidification. [place] sleepiness scale is increased to 12. I checked information from PAP unit. PAP unit pressure 5-15, average 7.0 cm H2O. Usage is 80% and 70% for more then 4 hours, average 5.6 hours per night. Leak is perfect 1.5 l/m. Apnea Hypopnea Index is 0.4, which is normal. MEDICATIONS have been reviewed, please see below. During physical exam: GENERAL: A pleasant patient without any distress. VITAL SIGNS: Please see below, weight is 220 lbs. HEENT: PERRLA, EOMI.low position of soft palate, Mallapati 3. NECK: Supple. No JVD. LUNGS: Clear to percussion and to auscultation. Good air exchange. No wheezing or rhonchi. HEART: S1, S2 regular. ABDOMEN: Soft and nontender.[] EXTREMITIES: No clubbing or cyanosis. LEAD PORTFOLIO MANAGER: Awake, alert, and oriented x3. No focal deficit. Impressions: 1. Obstructive sleep apnea-hypopnea syndrome. Patient demonstrated great compliance with treatment, benefiting from treatment. 2. Mild obesity, BMI 34.7, patient lost 4 pounds comparing with previous visit. 3. Mild excessive daytime sleepiness still present, but better than during previous visit. Plan: 1. Continue using PAP equipment every night for the whole night. 2. Sleep hygiene with regular time in bed for at least 7.5-8 hours. 3. PAP unit should stay lower then position of the head. 4. Advised patient to remove all remaining water from humidifier canister daily and make it dry after each usage. Refill canister with fresh distilled water before each usage. 5. Watching weight. 6. Precautions related to driving. No driving if feel any sleepiness. 7. I will maintain prescription for PAP supplies including mask, tube, filters. 8. Follow up visit in 8 months or earlier if patient has any problems. Thank you very much for allowing me to participate in the management of your patient. Gurinder Lopez MD, PhD, FAASM. Diplomat of [place] [employer], Sleep Medicine Board by [place] [employer] Medicine General Ophthalmologist of [facility] [place] Objective Home Medications: Home Medications Medication Instructions Recorded Confirmed Type Docusate [Colace] 100 mg PO BID #20 capsule 10/21/19 Rx HYDROcodone/APAP 5-325MG [[place] 1 tab PO Q6HR PRN #10 tab 10/21/19 Rx 5-325] Cephalexin [Keflex] 500 mg PO Q6HR #28 cap 05/20/22 Rx PARoxetine HCL 20 mg PO DAILY 09/30/24 09/30/24 History
== END ==
LOC: 3 N SLEEP 13:13
PROVIDERS: ATTEND Internal Medicine
DX: G47.33 Obstructive sleep apnea (adult) (pediatric) (principal); E66.9 Obesity, unspecified; G47.10 Hypersomnia, unspecified; Z99.89 Dependence on other enabling machines and devices; Z68.34 Body mass index [BMI] 34.0-34.9, adult; Z87.891 Personal history of nicotine dependence
CPT/HCPCS: 99212